=== PATIENT | female | born 1980 | race Caucasian/White ===

== ENCOUNTER 2017-04-18 14:00 | Day surgery (SDC) | payer MEDICAID ==
[~2017-04-18] VITALS: Ht 157.5 cm; Wt 192.7 kg
[~2017-04-18 14:00] MED LIST: ALBU18HF2 IH; BENZ-16 PO; GUAI600T45 PO; HCTZ25T PO; HYDR-3973 PO; LISI-600 PO; METF850T2 PO; MOME13HF3 INH; NOR5T PO
[2017-04-18 14:14] VITALS: BP 145/91
[2017-04-18] MEDS ORDERED: fentaNYL/PF 50MCG/1 ML 2ML syringe ONE ×2 (14:29→14:59)
[2017-04-18] MEDS ORDERED: LIDOcaine Viscous 15ml cup ONE (14:29)
[2017-04-18] MEDS ORDERED: MIDAZolam 1mg/ml 10ml vial ONE (14:29)
[2017-04-18 15:10] VITALS: BP 138/93
[2017-04-18 15:20] VITALS: BP 130/82
[2017-04-18 15:30] VITALS: BP 132/72
== END 2017-04-18 15:40 | disposition home or self-care (01) ==
LOC: GI LAB 14:00
PROVIDERS: ATTEND Internal Medicine Gastroenterology
DX: K29.50 Unspecified chronic gastritis without bleeding (principal); K21.0 Gastro-esophageal reflux disease with esophagitis; G47.30 Sleep apnea, unspecified; J44.9 Chronic obstructive pulmonary disease, unspecified; E11.9 Type 2 diabetes mellitus without complications; F41.9 Anxiety disorder, unspecified; F32.9 Major depressive disorder, single episode, unspecified; F17.210 Nicotine dependence, cigarettes, uncomplicated; Z88.1 Allergy status to other antibiotic agents; Z79.84 Long term (current) use of oral hypoglycemic drugs; Z98.890 Other specified postprocedural states; Z79.899 Other long term (current) drug therapy
CPT/HCPCS: 43239; 99152; J2250; J3010; J7030; A4620; G0500

== ENCOUNTER 2017-05-23 11:57 | Day surgery (SDC) | payer MEDICAID ==
[~2017-05-23] VITALS: Ht 157.5 cm; Wt 186.4 kg
[2017-05-23] MEDS ORDERED: HYDR-3686 PO (12:13)
[2017-05-23] MEDS ORDERED: PRAZ2CAP2 PO (12:14)
[2017-05-23] MEDS ORDERED: DIPH-423 PO (12:15)
[2017-05-23] MEDS ORDERED: ESCI20TA38 PO (12:15)
[2017-05-23] MEDS ORDERED: TRAZ-143 PO (12:15)
[2017-05-23] MEDS ORDERED: INSU100I31 SQ (12:16)
[2017-05-23] MEDS ORDERED: NITR0.4T51 SL (12:18)
[2017-05-23] MEDS ORDERED: ASPI-611 PO (12:18)
[2017-05-23 12:33] VITALS: BP 138/78
[2017-05-23] MEDS ORDERED: MIDAZolam 5mg/ml 2ml vial ONE (12:53)
[2017-05-23] MEDS ORDERED: fentaNYL/PF 50MCG/1 ML 2ML syringe ONE (12:53)
[2017-05-23 13:48] VITALS: BP 99/70
[2017-05-23 13:58] VITALS: BP 104/71
[2017-05-23 14:08] VITALS: BP 125/67
[2017-05-23 14:18] VITALS: BP 113/64
== END 2017-05-23 14:20 | disposition home or self-care (01) ==
LOC: GI LAB 11:57
PROVIDERS: ATTEND Internal Medicine Gastroenterology
DX: D12.6 Benign neoplasm of colon, unspecified (principal); K64.8 Other hemorrhoids; E66.01 Morbid (severe) obesity due to excess calories; I10 Essential (primary) hypertension; F17.210 Nicotine dependence, cigarettes, uncomplicated; E11.9 Type 2 diabetes mellitus without complications; J45.909 Unspecified asthma, uncomplicated; Z79.4 Long term (current) use of insulin; Z79.82 Long term (current) use of aspirin; Z88.1 Allergy status to other antibiotic agents; Z79.899 Other long term (current) drug therapy; Z68.45 Body mass index [BMI] 70 or greater, adult
CPT/HCPCS: 45380; 99152; J2250; J3010; J7030; A4620; G0500

== ENCOUNTER 2023-08-18 16:31 | Emergency (ER) | payer MEDICAID ==
[~2023-08-18] VITALS: Ht 160 cm; Wt 188.7 kg
[~2023-08-18 16:31] MED LIST changes: +ASPI-611 PO; -BENZ-16 PO; +DIPH-423 PO; +ESCI20TA39 PO; -GUAI600T45 PO; +HYDR-3686 PO; -HYDR-3973 PO; +INSU100I31 SQ; -LISI-600 PO; +LISI20TA28 PO; +METF-437 PO; -METF850T2 PO; -MOME13HF3 INH; +MOME13HF8 INH; +NITR0.4T51 SL; +PRAZ2CAP2 PO; +TRAZ-251 PO
[2023-08-18 18:18] LABS: BASOPHILS # (AUTO) 0.1 X10'3 (0-0.2); BASOPHILS % (AUTO) 0.7 % (0-1); EOSINOPHILS # (AUTO) 0.1 X10'3 (0-0.9); EOSINOPHILS % (AUTO) 1.3 % (0-6); HEMATOCRIT 44.3 % (35.0-45.0); HEMOGLOBIN 14.7 g/dl (12.0-16.0); LYMPHOCYTES # (AUTO) 2.2 X10'3 (1.1-4.8); LYMPHOCYTES % (AUTO) 24.4 % (21-51); MEAN CORPUSCULAR HEMOGLOBIN 29.8 PG (27.0-31.0); MEAN CORPUSCULAR HGB CONC 33.1 g/dL (33.0-36.5); MEAN CORPUSCULAR VOLUME 90.1 FL (78-98); MONOCYTES # (AUTO) 0.7 X10'3 (0-0.9); MONOCYTES % (AUTO) 7.4 % (2-12); NEUTROPHILS % (AUTO) 66.2 % (42-75); PLATELET COUNT 319 X10'3 (140-440); RED BLOOD COUNT 4.92 X10'6 (4.20-5.60); RED CELL DISTRIBUTION WIDTH 14.4 % (11.5-14.5); WHITE BLOOD COUNT 9.1 X10'3 (4.5-11.0)
[2023-08-18 18:39] LABS: ALANINE AMINOTRANSFERASE 15 U/L (12-78); ALBUMIN 3.5 G/DL (3.4-5.0); ALBUMIN/GLOBULIN RATIO 0.8 (1.1-1.5); ALKALINE PHOSPHATASE 68 IU/L (46-116); ANION GAP 7 (8-16); ASPARTATE AMINO TRANSFERASE 12 U/L (10-37); BILIRUBIN,TOTAL 0.4 MG/DL (0.1-1.0); BLOOD UREA NITROGEN 15 MG/DL (7-18); BUN/CREATININE RATIO 12.8 (10.0-20.0); CALCIUM 9.2 MG/DL (8.5-10.1); CHLORIDE 101 MMOL/L (99-107); CREATININE 1.17 MG/DL (0.40-0.90); GLUCOSE 201 MG/DL (70-104); POTASSIUM 3.7 MMOL/L (3.5-5.1); SODIUM 136 MMOL/L (135-145); TOTAL CARBON DIOXIDE 28.4 MMOL/L (24-32); TOTAL PROTEIN 8.1 G/DL (6.4-8.2); eCRCL 50 ML/MIN; eGFR 50 ML/MIN
[2023-08-18 18:47] LABS: INR 0.9 INR
[2023-08-18] MEDS ORDERED: iohexol 350MG/ML 100ml bottle IV ONE (19:02)
[2023-08-18 19:24] LABS: URINE HCG NEGATIVE (NEG)
[2023-08-18 21:30] VITALS: BP 144/85; PULSE 100; RESP 18; TEMP 97.2; O2SAT 94
== END 2023-08-18 21:31 | disposition home or self-care (01) ==
LOC: ER 16:32
DX: S10.93XA Contusion of unspecified part of neck, initial encounter (principal); E78.00 Pure hypercholesterolemia, unspecified; I10 Essential (primary) hypertension; J45.909 Unspecified asthma, uncomplicated; K21.9 Gastro-esophageal reflux disease without esophagitis; E11.9 Type 2 diabetes mellitus without complications; T71.9XXA Asphyxiation due to unspecified cause, initial encounter; Z88.1 Allergy status to other antibiotic agents; Z88.8 Allergy status to other drugs, medicaments and biological substances; Z79.899 Other long term (current) drug therapy; Z79.82 Long term (current) use of aspirin; Z79.84 Long term (current) use of oral hypoglycemic drugs; Z87.891 Personal history of nicotine dependence; Y93.89 Activity, other specified; Y92.89 Other specified places as the place of occurrence of the external cause; Y99.8 Other external cause status
CPT/HCPCS: 36415; 70498; 80053; 81025; 85025; 85610; 99285; J3490; Q9967

== ENCOUNTER 2024-12-17 05:17 | Day surgery (SDC) | payer MEDICAID ==
[2024-12-13 10:02] LABS: MEAN PLATELET VOLUME 8.2 FL (7.4-10.4); PRE OP HEMATOCRIT 37.2 % (35.0-45.0); PRE OP HEMOGLOBIN 11.6 g/dL (12.0-16.0); PRE OP PLATELET COUNT 377 X10'3 (140-440); PRE OP WHITE BLOOD COUNT 8.5 10'3 (4.8-10.8); RED CELL DISTRIBUTION WIDTH 15.6 % (11.5-14.5)
--- NOTE | 2024-12-13 10:11 | ELECTROCARDIOGRAPH REPORT ---
[facility] Test Date: 2024-12-13 Test Time: 10:09:10 Pat Name: RISHABH ANGEL Department: [facility]-PRE-OP Patient ID: [facility]-[id number] Room: Gender: F [employer] Operator: rufino : 1980 Requested By: LAMBERT HADLEY Order Number: [id number] Reading MD: Dr. STEW Goodwin Measurements Intervals [place] Rate: 87 P: 64 [place]: 176 QRS: 27 QRSD: 90 T: 41 QT: 357 QTc: 430 Interpretive Statements Sinus rhythm Low voltage, precordial leads Electronically Signed On 12-14-2024 16:26:[address] STEW Goodwin Please click the below link to view image of tracing.
[2024-12-13 10:12] LABS: HCG SERUM QL NEGATIVE
[2024-12-13 10:22] LABS: CREATININE 1.11 MG/DL (0.40-0.90); PRE OP ALT 13 U/L (30-65); PRE OP ANION GAP 11 (8-16); PRE OP AST 7 U/L (10-37); PRE OP BILIRUB, TOTAL 0.2 MG/DL (0.0-1.0); PRE OP GLUCOSE 194 MG/DL (70-104); PRE OP POTASSIUM 4.5 MMOL/L (3.4-5.1); PRE OP SODIUM 139 MMOL/L (135-145); TOTAL CARBON DIOXIDE 23.3 MMOL/L (24-32); eGFR 53 ML/MIN
[2024-12-17] VITALS (8 sets, daily range): BP systolic 112–149; BP diastolic 83–100; PULSE 72–88; RESP 12–17; TEMP 97.8; O2SAT 95–99
[~2024-12-17] VITALS: Ht 160 cm; Wt 179.2 kg
[~2024-12-17 05:17] MED LIST changes: -ALBU18HF2 IH; +ARIP400S5 IM; -ASPI-611 PO; +DAPA10TA PO; -DIPH-423 PO; -ESCI20TA39 PO; +FAMO40TA7 PO; -HCTZ25T PO; -INSU100I31 SQ; +INSU100I61 SQ; +INSU200I4 SQ; -LISI20TA28 PO; -METF-437 PO; -MOME13HF8 INH; -NITR0.4T51 SL; -NOR5T PO; +OMEP10CA5 PO; -PRAZ2CAP2 PO; +PRAZ5CAP2 PO; +ROSU40TA PO; +TIRZ5PEN SQ; -TRAZ-251 PO; +ZOLP5TAB8 PO
[2024-12-17] MEDS: Cefazolin 3 GM/100ML NS IVPB 100 ML IV ONE (06:16)
[2024-12-17] MEDS: ringers solution, lacted 1,000 ML IV SCH (06:16)
[2024-12-17] MEDS ORDERED: LIDOcaine 2% (20mg/ml) 5ml vial ONE ×3 (06:44→07:06)
[2024-12-17] MEDS ORDERED: triamcinolone acetonide 40mg/ml inj ONE (06:44)
[2024-12-17] MEDS ORDERED: BUPIVAcaine/PF 2.5mg/ml (0.25%) 10ml vial ONE (06:46)
[2024-12-17] MEDS ORDERED: fentaNYL/PF 50MCG/1 ML 2ML syringe ONE (07:28)
[2024-12-17] MEDS ORDERED: propofol inj 20 ML IV ONE (07:29)
[2024-12-17] MEDS ORDERED: midazolam 1 mg/ML 2ml injection ONE (07:29)
[2024-12-17] MEDS ORDERED: HYDROmorphone/PF 0.2 MG/ML SYRINGE IV PRN ×2 (08:10)
[2024-12-17] MEDS: BUPIVAcaine/PF 2.5mg/ml (0.25%) 10ml vial IJ ONE (08:13)
[2024-12-17] MEDS: morphine 4 MG/ML inj SYRINge IV PRN (08:23)
[2024-12-17] MEDS: HYDROcodone/acetaminophen 5mg/325mg tablet PO ONE (08:36)
--- NOTE | 2024-12-17 09:28 | OPERATIVE REPORT ---
Operative Report Providers to ~ Date of Procedure: Dec 17, 2024 Pre-Operative Diagnosis: Left wrist carpal tunnel syndrome and thumb arthritis Post-Operative Diagnosis Carpal tunnel syndrome left wrist and left thumb CMC arthritis Procedure Performed Left wrist endoscopic carpal tunnel release, left thumb carpometacarpal joint steroid injection Surgeon: Luc Red MD Store Product Demonstrator None Anesthesiologist: Jay Valencia Type of Anesthesia: Regional Findings: Estimated Blood Loss: None Specimen Removed: None Description of Procedure: The patient is a 44-year-old woman with a left wrist carpal tunnel syndrome as well as symptomatic arthritis involving the left thumb carpometacarpal joint. Surgery is indicated to improve function. Risks and benefits were discussed with the patient some of the risks include but are not limited to infection, bleeding, nerve damage, incomplete relief of symptoms. She agreed to proceed. Once in the operating room the arm was prepped and draped in usual manner. Time-out procedure was performed. Local in injection of Marcaine and lidocaine was given proximal to the volar wrist crease. The tourniquet was then inflated on the forearm. A transverse incision was made at the wrist crease ulnar to palmaris longus and a distally based U shaped flap was raised in the forearm fascia. The scope was placed in the carpal canal in line with the ring finger. The cutting blade was deployed up against the underside of the ligament and the scope was drawn proximally, dividing the ligament. The scope was removed and the flap was transected. This was followed by division of the forearm fascia several cm proximal to the wrist crease. The incision was irrigated and closed with nylon suture. 20 mg Kenalog was then injected into the thumb CMC joint under sterile condition. A sterile gauze dressing was then applied. The tourniquet was released the hand perfused well and the patient was taken to the recovery room in stable condition LUC RED Jr., MD Dec 17, 2024 09:28
== END 2024-12-17 08:54 | disposition home or self-care (01) ==
LOC: PAS 05:17
PROVIDERS: ATTEND Orthopaedic Surgery Hand Surgery
DX: G56.02 Carpal tunnel syndrome, left upper limb (principal); M18.12 Unilateral primary osteoarthritis of first carpometacarpal joint, left hand; E11.9 Type 2 diabetes mellitus without complications; E66.01 Morbid (severe) obesity due to excess calories; K21.9 Gastro-esophageal reflux disease without esophagitis; E78.5 Hyperlipidemia, unspecified; Z79.891 Long term (current) use of opiate analgesic; Z90.49 Acquired absence of other specified parts of digestive tract; Z98.890 Other specified postprocedural states; Z68.45 Body mass index [BMI] 70 or greater, adult; Z88.8 Allergy status to other drugs, medicaments and biological substances
CPT/HCPCS: 20600; 29848; 36415; 80053; 82948; 84703; 85025; 93005; J0690; J2003; J2250; J2270; J2704; J3010; J3301; J3490; J7030; J7120; Z7506; Z7512; A4215; A6449; A7000